=== PATIENT | male | born 1945 | race Caucasian/White ===

== ENCOUNTER 2016-11-14 18:11 | Emergency (ER) | payer OTHER, MEDICARE ==
[~2016-11-14 18:11] MED LIST: COREG 6.256.25 MG PO; LEVEMIR 10100 UNITS/ SC; LEVEMIR FL300 UNITS/ SC; LEVEMIR FLEX100 U/M1 SC; LISINOPRIL20 MG PO; NEXIUM 40MG40 MG PO; NORVASC 5MG TAB5 MG PO; NOVOLOG 10300 UNITS/ SC; NOVOLOG100 U/ML SC; OMEPRAZOLE D/R20 MG PO; SIMVASTATIN40 MG PO
--- NOTE | 2016-11-14 20:22 | RADIOLOGY REPORT ---
EXAMINATION: XR CHEST CLINICAL INFORMATION: Fever and shortness of breath. COMPARISON: Chest x-ray dated 08/16/2016. TECHNIQUE: 2 views of the chest were obtained. FINDINGS: There is a prominent left ventricular contour which was also noted on prior imaging. The thoracic aorta is uncoiled. No airspace opacities or pleural effusions are seen. There is elevation of the right hemidiaphragm. No acute osseous abnormality is seen. IMPRESSION: Stable left ventricular hypertrophy. No airspace opacities or pleural effusions.
[2016-11-14 20:27] LABS: ABSOLUTE BASOPHIL COUNT 0 /CUMM (0.0-0.2); ABSOLUTE EOSINOPHIL COUNT 0 /CUMM (0.0-0.7); ABSOLUTE GRANULOCYTE CT 12.8 /CUMM (1.4-6.5); ABSOLUTE LYMPH COUNT 0.5 /CUMM (1.2-3.4); ABSOLUTE MONOCYTE COUNT 1.3 /CUMM (0.10-0.60); BASOPHIL % 0.1 % (0.0-2.0); EOSINOPHIL % 0.2 % (0-5); HEMATOCRIT 39.7 % (42-52); MEAN CORPUSCULAR HGB 28.9 PG (27.0-31.0); MEAN CORPUSCULAR HGB CONC 33.8 G/DL (33.0-37.0); MEAN CORPUSCULAR VOLUME 85.4 FL (80.0-94.0); MEAN PLATELET VOLUME 7.5 FL (7.4-10.4); PLATELET COUNT 185 /CUMM (130-400); RBC DISTRIBUTION WIDTH 14.2 % (11.5-14.5); RED BLOOD CELL CT 4.64 /CUMM (4.70-6.10); WHITE BLOOD CELL COUNT 14.7 /CUMM (4.8-10.8)
[2016-11-14 20:29] LABS: GRANULOCYTE % 87.1 % (42.2-75.2)
--- NOTE | 2016-11-14 20:47 | ED GENERAL ADULT ---
History of Present Illness General Chief Complaint: Male Genitourinary Problems Stated Complaint: UTI, CHILLS, FEVER Source: patient, family, old records Exam Limitations: no limitations Vital Signs & Intake/Output Vital Signs & Intake/Output Vital Signs Date Time Temp Pulse Resp B/P Pulse O2 O2 Flow FiO2 Ox Delivery Rate 11/15 2211 98.1 87 18 151/82 96 Room Air 11/14 2056 99.2 89 16 162/72 96 Room Air 11/14 1854 99.6 94 18 166/89 97 Room Air Allergies Coded Allergies: MDX - PCN (penicillin) (PCN (PENICILLIN)) (Severe, THROAT CLOSES 02/27/15) Reconcile Medications Amlodipine (Norvasc 5MG Tab) 5 MG TABLET 1 TAB PO DAILY blood pressure ( Reported) Carvedilol (Coreg) 3.125 MG TABLET 1 TAB PO BID HEART Insulin Aspart, Recombinant (Novolog) 100 U/ML TEX 0 UNITS SC TID DIABETES FINGER STICK BLOOD SUGAR 80- 150 NO INSULIN 151-200 2 UNITS 201-250 4 UNITS 251-300 6 UNITS 301-350 8 UNITS 351-400 10 UNITS > 400 12 UNITS PLEASE CALL YOUR DOCTOR IF BLOOD SUGAR MORE THEN 200 Insulin Detemir (Levemir Flextouch) 100 U/ML TEX 30 UNITS SC DAILY DIABETES Lisinopril 20 MG TABLET 2 TAB PO DAILY High blood pressure (Reported) Omeprazole 20 MG ECC 1 CAP PO DAILY GI (Reported) Simvastatin 40 MG TABLET 1 TAB PO QPM CHOLESTEROL (Reported) Triage Note: TRIAGE; PT TO ED WITH BURNING WITH URINATION, AND URINE URGENCY. STATES HE STARTED TO DEVELOP PAIN, WHICH WENT AWAY, AND TODAY WHILE GETTING OUT OF THE SHOWER BECAME VERY SOB WHILE GETTING DRESSED AND THEN VOMITED AFTERWARDS WELL. DENIES ANY CP. TEMP AT HOME 100.8, TOOK 3 BABY ASA AND TEMP IS NOW 99.6. Triage Nurses Notes Reviewed? yes Onset: Afternoon Duration: hour(s):, better, gone now Timing: recent history Injury Environment: home Severity: moderate No Modifying Factors: none Associated Symptoms: dysuria, shortness of breath HPI: Several hours prior to admission patient complains of painful urination that is now gone. While preparing to come to the hospital he complained of shortness of breath that is also now gone. He denies fever chills chest pain cough headache rash bleeding. Past History Travel History Traveled to [place] past 21 day No Medical History Any Pertinent Medical History? 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 FH: heart disease FATHER, , Age 93; Cause: Heart disease. FH: heart disease Hx Contributory? No Review of Systems Review of Systems Constitutional: Reports: see HPI. EENTM: Reports: no symptoms. Respiratory: Reports: see HPI, short of breath. Cardiovascular: Reports: no symptoms. GI: Reports: no symptoms. Genitourinary: Reports: see HPI, dysuria. Musculoskeletal: Reports: no symptoms. Skin: Reports: no symptoms. Neurological/Psychological: Reports: no symptoms. Hematologic/Endocrine: Reports: no symptoms. Immunologic/Allergic: Reports: no symptoms. All Other Systems: Reviewed and Negative Physical Exam Physical Exam General Appearance: well developed/nourished, alert, awake, anxious, mild distress Head: atraumatic, normal appearance Eyes: Bilateral: normal appearance, PERRL, EOMI. Ears, Nose, Throat: normal pharynx, normal ENT inspection, moist mucus membranes Neck: normal inspection, supple, full range of motion, no midline tenderness Respiratory: normal breath sounds, chest non-tender, no respiratory distress, quiet respiration, lungs clear Cardiovascular: regular rate/rhythm, normal peripheral pulses, norml femoral pulses equa Peripheral Pulses: 4+ carotid (R), 4+ carotid (L) Gastrointestinal: normal bowel sounds, soft, non-tender, no organomegaly Back: normal inspection, normal range of motion, no vertebral tenderness Extremities: normal inspection, normal capillary refill, normal range of motion, no edema Neurologic/Psych: no motor/sensory deficits, awake, alert, oriented x 3, normal gait, normal mood/affect, 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 Skin: intact, normal color, warm/dry Lymphatic: no anterior cervical vinicio Core Measures ACS in differential dx? No CVA/TIA Diagnosis: No Severe Sepsis Present: No Septic Shock Present: No Progress Differential Diagnoses I considered the following diagnoses in my evaluation of the patient: UTI pneumonia DKA Plan of Care: Orders Procedure Date/time Status LIPASE 11/15 1939 Complete COMPREHENSIVE METABOLIC PANEL 11/15 1939 Complete CBC WITHOUT DIFFERENTIAL 11/15 1939 Complete ACETONE 11/15 1939 Complete EKG 11/15 1939 Active URINALYSIS 11/14 1856 Complete Laboratory Tests 11/14/16 2017: Anion Gap 10, Estimated GFR > 60, BUN/Creatinine Ratio 32.7 H, Glucose 445 H, Calcium 8.8, Total Bilirubin 0.8, AST 16 L, ALT 27, Alkaline Phosphatase 95, Total Protein 6.1 L, Albumin 3.6, Globulin 2.5, Albumin/Globulin Ratio 1.4, Lipase 37, CBC w Diff NO MAN DIFF REQ, RBC 4.64 L, MCV 85.4, MCH 28.9, RDW 14.2 , MPV 7.5, Gran % 87.1 H, Lymphocytes % 3.6 L, Monocytes % 9.0, Eosinophils % 0.2, Basophils % 0.1, Absolute Granulocytes 12.8 H, Absolute Lymphocytes 0.5 L , Absolute Monocytes 1.3 H, Absolute Eosinophils 0, Absolute Basophils 0, PUBS MCHC 33.8, Acetone Level NEGATIVE 11/14/161912: Urine Color YEL, Urine Clarity HAZY H, Urine pH 6.0, Ur Specific [place] 1.025, Urine Protein 30 H, Urine Ketones TRACE H, Urine Nitrite POS H, Urine Bilirubin NEG, Urine Urobilinogen 0.2, Ur Leukocyte Esterase NEG, Ur Microscopic SEDIMENT EXAMINED, Urine RBC 5-10 H, Urine WBC 5-10 H, Ur Epithelial Cells FEW , Urine Bacteria MANY H, Urine Hemoglobin MOD H, Urine Glucose >=1000 H Diagnostic Imaging: Viewed by Me: Radiology Read. Discussed w/RAD: Radiology Read. CXR Impression: no acute abnormality, no infiltrates, normal size heart Initial ED EKG: normal axis, normal intervals, normal p-waves, normal QRS complex, normal sinus rhythm, nonspecific ST T wave chg Rhythm Strip: normal sinus rhythm Departure Departure Time of Disposition: 2220 Disposition: HOME OR SELF CARE Condition: Stable Clinical Impression Primary Impression: UTI (urinary tract infection) Qualifiers: Urinary tract infection type: site unspecified Hematuria presence: without hematuria Qualified Code: N39.0 - Urinary tract infection, site not specified Secondary Impressions: Hyperglycemia due to type 1 diabetes mellitus Referrals: [facility]INID[facility] CORONEL,NABOR James (PCP/Family) Departure Forms: Customer Survey General Discharge Information Prescriptions: Current Visit Scripts Sulfamethoxazole/Trimethoprim (Bactrim Ds Tablet) 1 TAB PO BID #20 TAB Critical Care Note Critical Care Note Critical Care Time: non-applicable
[2016-11-14 22:12] VITALS: BP 151/82
[2016-11-14] MEDS ORDERED: BACTRIM DS TAB1 EACH PO (22:23)
[2016-11-14] MEDS ORDERED: PYRIDIUM200 M1 PO (22:35)
== END 2016-11-14 22:46 ==
LOC: ERH 18:11
PROVIDERS: Emergency Medicine
DX: N39.0 Urinary tract infection, site not specified (principal); E10.65 Type 1 diabetes mellitus with hyperglycemia
CPT/HCPCS: 81001; 93005; 93010; 96361; 96374; J1815